=== PATIENT | female | born 1995 | race Caucasian/White ===

== ENCOUNTER → 2019-01-12 | Outpatient (REF) | payer OTHER ==
[~2019-01-12] MED LIST: IBUP80TA PO; PERCOCET PO
[2019-01-20 10:07] LABS: HPV HYBRID CAPTURE II Positive (Negative)
== END ==
LOC: M LAB LCGH 11:49
PROVIDERS: ATTEND Obstetrics & Gynecology
DX: R87.610 Atypical squamous cells of undetermined significance on cytologic smear of cervix (ASC-US) (principal)
CPT/HCPCS: 87624; G0123

== ENCOUNTER 2019-12-21 14:49 | Outpatient (CLI) | payer OTHER ==
[~2019-12-21] VITALS: Ht 165.1 cm; Wt 93.6 kg
[2019-12-21] MEDS ORDERED: INSUDET SC (15:29)
[2019-12-21] MEDS ORDERED: NOVOINJ SC (15:29)
[2019-12-21] MEDS ORDERED: LACTATED RINGER'S 1000 ML IV ONE (16:15)
[2019-12-21] MEDS ORDERED: LR 1,000 ML IV SCH (16:15)
[2019-12-21 16:43] LABS: HEMATOCRIT 31.8 % (36.0-47.0); HEMOGLOBIN 9.9 g/dl (12.0-15.5); MEAN CORPUSCULAR HEMOGLOBIN 23.6 pg (27.0-33.0); MEAN CORPUSCULAR HGB CONC 31.1 g/dl (32.0-36.5); MEAN CORPUSCULAR VOLUME 75.9 fl (80.0-96.0); PLATELET COUNT, AUTOMATED 144 10^3/uL (150-450); RED BLOOD COUNT 4.19 10^6/uL (4.00-5.40); WHITE BLOOD COUNT 9.3 10^3/uL (4.0-10.0)
[2019-12-21 17:26] LABS: ALBUMIN 2.6 GM/DL (3.2-5.2); ALT/SGPT 16 U/L (12-78); BILIRUBIN,TOTAL 0.6 MG/DL (0.2-1.0); BLOOD UREA NITROGEN 7 MG/DL (7-18); CALCIUM LEVEL 9.6 MG/DL (8.5-10.1); CARBON DIOXIDE LEVEL 22 MEQ/L (21-32); CHLORIDE LEVEL 107 MEQ/L (98-107); CREATININE FOR GFR 0.75 MG/DL (0.55-1.30); GLOMERULAR FILTRATION RATE > 60.0 (>60); GLUCOSE, FASTING 74 MG/DL (70-100); POTASSIUM SERUM 4.1 MEQ/L (3.5-5.1); SODIUM LEVEL 137 MEQ/L (136-145); TOTAL PROTEIN 5.8 GM/DL (6.4-8.2)
== END 2019-12-21 17:44 | disposition home or self-care (01) ==
LOC: M LDO 14:49
PROVIDERS: ATTEND Obstetrics & Gynecology
DX: O47.1 False labor at or after 37 completed weeks of gestation (principal); Z3A.37 37 weeks gestation of pregnancy
CPT/HCPCS: 59025; 80053; 85027; G0378; G0463

== ENCOUNTER 2019-12-24 01:35 | Inpatient (IN) | payer OTHER ==
[~2019-12-24] VITALS: Ht 165.1 cm; Wt 93.1 kg
[2019-12-24] VITALS (7 sets, daily range): BP systolic 111–137; BP diastolic 66–84
[~2019-12-24 01:35] MED LIST changes: +INSUDET SC; +NOVOINJ SC
[2019-12-24] MEDS ORDERED: INSUHUMDS SC (01:54)
[2019-12-24] MEDS ORDERED: LACTATED RINGER'S 1000 ML IV STA (02:07)
[2019-12-24] MEDS ORDERED: LR 1,000 ML IV SCH (02:07)
[2019-12-24] MEDS ORDERED: BICITRA 30ML SOLN UDC PO ONE (02:15)
[2019-12-24] MEDS ORDERED: MORPHINE PRES-FREE INJ 10 MG/10 ML VIAL (J2274) As Ordered ONE (02:36)
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
[2019-12-24 02:40] LABS: HEMATOCRIT 31.6 % (36.0-47.0); HEMOGLOBIN 9.8 g/dl (12.0-15.5); MEAN CORPUSCULAR HEMOGLOBIN 23.5 pg (27.0-33.0); MEAN CORPUSCULAR VOLUME 75.8 fl (80.0-96.0); PLATELET COUNT, AUTOMATED 149 10^3/uL (150-450); RED BLOOD COUNT 4.17 10^6/uL (4.00-5.40); WHITE BLOOD COUNT 11.7 10^3/uL (4.0-10.0)
[2019-12-24] MEDS ORDERED: OXYTOCIN INJ 10 UNITS/ML VIAL (J2590) As Ordered ONE ×2 (02:41→03:18)
[2019-12-24] MEDS: AZTREONAM 2 GM in D5W MINI-BAG PLUS 50 ML IV SCH ×2 (02:43→10:53)
[2019-12-24] MEDS ORDERED: OXYTOCIN DRIP 30 UNITS in IV 1 EA IV SCH (02:53)
[2019-12-24] MEDS: LR 1,000 ML IV SCH ×3 (02:53→17:45)
[2019-12-24] MEDS ORDERED: diphenhydrAMINE 50MG/ML VIAL (J1200) IV PRN ×2 (02:58→04:45)
[2019-12-24] MEDS ORDERED: ONDANSETRON 4MG/2ML VIAL IV PRN ×3 (02:58→04:45)
[2019-12-24] MEDS ORDERED: NALOXONE INJ 0.4MG/1ML VIAL (J2310 PER 1MG) IV PRN ×2 (02:58)
[2019-12-24] MEDS ORDERED: NALBUPHINE HCL 10 MG/ML AMP (J2300) IV PRN ×2 (02:58→04:45)
[2019-12-24] MEDS ORDERED: METOCLOPRAMIDE INJ 10MG/2ML VIAL (J2765 PER 1) IV PRN (02:58)
[2019-12-24] MEDS ORDERED: MEASLES,MUMPS,RUBELLA VACCINE INJ (MMR-II) (90707) SC SCH (03:00)
[2019-12-24] MEDS ORDERED: MOM 30ML SUSPENSION UDC PO PRN (03:00)
[2019-12-24] MEDS ORDERED: RHOGAM 300 MCG (1500 IU) INJ (J2790) IM SCH (03:00)
--- NOTE | 2019-12-24 03:02 | ROOPDOC ---
[facility] Report Of Operation Report of Operation DATE OF PROCEDURE: 12/24/19 SURGEON: Mera Bailey M.D. WASTEWATER PROJECT ENGINEER: Nataliya Bejarano CNM PROCEDURE: section with bilateral Filley tubal ligation PREOPERATIVE DIAGNOSIS: 1. History of prior section 2. Intrauterine at 38 weeks in labor 3. Satisfied parity with undesired fertility POSTOPERATIVE DIAGNOSIS: 1. History of prior section 2. Intrauterine at 38 weeks in labor 3. Satisfied parity with undesired fertility ANESTHESIA: Spinal ESTIMATED BLOOD LOSS: 500 mL URINE OUTPUT: 100 mL INTRAVENOUS FLUIDS: 2 L lactated Ringer solution PREOPERATIVE ANTIBIOTICS: 900 mg of clindamycin and 2 g of Azactam OPERATIVE FINDINGS: Liveborn female infant, Apgars 8 and 9. Weight was 5190 g 11 lbs. 7 oz. SPECIMENS: Bilateral segments of fallopian tubes DESCRIPTION OF PROCEDURE: After informed consent was obtained and written consent was reviewed. The patient was brought to the operating room where spinal anesthesia was placed. She was then placed in the supine position with a left lateral tilt. Anderson catheter was placed and to gravity. Patient was then prepped and draped in the normal sterile fashion. A timeout operating room was performed identifying the patient, procedure be performed as well as drug allergies. Anesthesia was tested and deemed to be adequate. Pfannenstiel skin incision was made and this was carried down to the underlying rectus fascia. The fascia was then scored and this incision was extended bilaterally. The fascia was then dissected off the underlying rectus muscle superiorly and inferiorly. The rectus muscles were then in the midline. The peritoneum is then entered. Vesicouterine peritoneum was then tented and excised and a bladder flap was created. Mobius retractor was then placed. Next, a curvilinear incision was then made in the lower uterine segment. The head was brought to the level of the incision atraumatically and delivered along the shoulders and corpus. The cord was clamped x2. The infant was brought over to the warmer with a good cry. Placenta was drained and delivered grossly intact. The uterus was cleared of all clots and debris and the uterine incision was then closed in 2 layers using 0 Vicryl, first in a running locking fashion followed by second layer for imbrication. The abdomen suctioned. Attention was then turned to a bilateral Filley tubal ligation. A window was created in the right mesosalpinx. This area was doubly ligated with 3-0 chromic and was excised with good hemostasis noted. In a similar fashion, the left fallopian tube was placed on traction. A window was created in the mesosalpinx. This area was doubly ligated with 3-0 chromic and was excised, and hemostasis was noted. Surgical sites reinspected and noted be hemostatic. The retractor was then removed. The anterior peritoneum was then reapproximated with 3-0 Vicryl. The rectus muscles were reapproximated 3-0 Vicryl. The fascia was then closed using 0 Vicryl in a running nonlocking fashion. The subcutaneous tissues was then irrigated and suctioned. Subcutaneous tissue was reapproximated using 3-0 Christofer ryl. Several subdermal stitch is placed using 3-0 Vicryl and the skin was closed with 4-0 Monocryl and subcuticular fashion. This incision was then cleaned and dried and was dressed. The patient was then taken to recovery in stable condition. All counts were correct. My surgical asst Nataliya Bejarano played in an essential role during the operation. She assisted with tissue identification retraction, delivery of the , as well as wound closure. MERA BAILEY MD. Dec 24, 2019 03:02
[2019-12-24] MEDS ORDERED: ONDANSETRON 4MG/2ML VIAL As Ordered ONE (03:14)
[2019-12-24] MEDS ORDERED: dexameTHASONE 4 MG/ML 1ML VIAL (J1100 PER 1MG) As Ordered ONE (03:18)
[2019-12-24] MEDS ORDERED: PHENYLephrine HCL 500 MCG/5 ML (100MCG/ML) SYRINGE (J2370) As Ordered ONE (03:31)
[2019-12-24] MEDS ORDERED: ePHEDrine SULFATE 25 MG/5 ML(5MG/ML) SYRINGE As Ordered ONE (03:31)
[2019-12-24] MEDS ORDERED: KETOROLAC 60MG 2ML VIAL As Ordered ONE (03:31)
[2019-12-24] MEDS ORDERED: OXYTOCIN 30 UNITS IN 0.9% NaCl 500ML IV BAG (J2590) As Ordered ONE (03:38)
[2019-12-24] MEDS: KETOROLAC 30 MG/ML 1ML VIAL IV SCH ×3 (04:00→16:07)
[2019-12-24] MEDS ORDERED: diphenhydrAMINE 50MG/ML VIAL (J1200) As Ordered ONE (04:40)
[2019-12-24] MEDS ORDERED: fentaNYL 100 MCG/2 ML INJECTION (J3010) IV PRN (04:45)
[2019-12-24] MEDS: DOCUSATE SODIUM 100 MG CAP PO SCH ×2 (09:00→20:35)
[2019-12-24] MEDS: PRENATAL VITAMINS CHEWABLE TABLET PO SCH (09:00)
[2019-12-24] MEDS ORDERED: LR 1,000 ML IV ONE ×2 (16:30→21:00)
[2019-12-24] MEDS: PERCOCET 5MG/325MG TAB PO PRN (23:03)
[2019-12-25] MEDS: IBUPROFEN 800 MG TAB PO SCH ×4 (00:22→23:52)
[2019-12-25 02:00] VITALS: BP 118/57
[2019-12-25] MEDS: PERCOCET 5MG/325MG TAB PO PRN ×3 (03:24→16:58)
[2019-12-25 06:00] VITALS: BP 119/57
--- NOTE | 2019-12-25 06:23 | IPNPDOC ---
Progress Note Date of Service: Dec 25, 2019 Day#: 1 Progress Note SUBJECT: Doing well without complaints. Ambulating, voiding and pain is well-c ontrolled. Reports minimal lochia. OBJECTIVE: VITAL SIGNS: Within normal limits, afebrile. Alert and oriented times three. Abdomen: Fundus firm at U-2. Soft, NTTP. Incision: dressed Ext: neg calf tenderness. ASSESSMENT: /postoperative day #1 status post delivery. Recovering in stable condition. PLAN: 1. Continue routine /postoperative care 2. Discharge plans for tomorrow VS, I&O, 24H, Fishbone Vital Signs/I&O Vital Signs Date Time Temp Pulse Resp B/P (MAP) Pulse Ox O2 Delivery O2 Flow Rate FiO2 12/25/19 04:30 18 Room Air 12/25/19 02:00 96.5 105 118/57 (77) 98 I&O- Last 24 Hours up to 6 AM 12/25/19 06:00 Intake Total 2740 ml Output Total 1500 ml Balance 1240 ml ELOISE HOLDEN MD. Dec 25, 2019 06:23
[2019-12-25 07:02] LABS: HEMATOCRIT 26.7 % (36.0-47.0); MEAN CORPUSCULAR VOLUME 76.7 fl (80.0-96.0); PLATELET COUNT, AUTOMATED 156 10^3/uL (150-450); RED BLOOD COUNT 3.48 10^6/uL (4.00-5.40); WHITE BLOOD COUNT 9.5 10^3/uL (4.0-10.0)
[2019-12-25] MEDS: DOCUSATE SODIUM 100 MG CAP PO SCH ×2 (08:51→20:57)
[2019-12-25] MEDS: PRENATAL VITAMINS CHEWABLE TABLET PO SCH (08:53)
[2019-12-25 18:00] VITALS: BP 113/66
[2019-12-25] MEDS ORDERED: PERCOCET 5MG/325MG TAB PO STA (18:01)
[2019-12-26] MEDS: PERCOCET 5MG/325MG TAB PO PRN ×2 (01:12→08:17)
--- NOTE | 2019-12-26 04:17 | DS.PDOC ---
Discharge Summary General Date of Admission Dec 24, 2019 at 02:08 Date of Discharge 12/27/2019 Attending Physician: ELOISE HOLDEN MD. Discharge Summary PROCEDURES PERFORMED DURING STAY: 1. Spinal anesthesia. 2. Repeat section. 3 bilateral Nesquehoning tubal ligation. ADMITTING DIAGNOSES: 1. Spontaneous rupture membranes. DISCHARGE DIAGNOSES: 1. Repeat section. COMPLICATIONS/CHIEF COMPLAINT: Labor Check/Rom. HISTORY OF PRESENT ILLNESS: 24-year-old 2, para 1 that presented at 38 weeks with spontaneous rupture membranes. Her history was significant for prior section. Her course has been remarkable for poorly controlled gestational diabetes. She had expressed desire for 6 weeks. Satisfied parity and undesired fertility and desired to proceed with elective repeat section. HOSPITAL COURSE: Uncomplicated. DISCHARGE MEDICATIONS: Please see below. ALLERGIES: Please see below. PHYSICAL EXAMINATION ON DISCHARGE: VITAL SIGNS: Please see below. GENERAL: Well-appearing, no acute distress ABDOMINAL EXAMINATION: Soft, appropriately tender. Fundus is firm below umbilicus. Incision was dressed. EXTREMITIES: Negative calf tenderness NEUROLOGICAL EXAMINATION: Grossly intact PSYCHIATRIC EXAMINATION:. Appropriate LABORATORY DATA: Please see below. ACTIVITY: As tolerated. DIET: Regular DISCHARGE PLAN: Home DISCHARGE INSTRUCTIONS: 1. Remain on pelvic rest for 6 weeks. 2. Reports severe pain, heavy vaginal bleeding, fever, incisional issues. 3. Follow-up in 2 weeks for incision check. ITEMS TO FOLLOWUP ON ON OUTPATIENT: 1. None. DISCHARGE CONDITION: Stable. Vital Signs/I&Os Vital Signs Date Time Temp Pulse Resp B/P (MAP) Pulse Ox O2 Delivery O2 Flow Rate FiO2 12/26/19 01:12 18 Room Air 12/25/19 18:00 97.4 76 113/66 (82) 100 Laboratory Data Labs 24H Laboratory Tests 2 12/25/19 06:25: Nucleated Red Blood Cells % (auto) 0.0 CBC/BMP Laboratory Tests 12/25/19 06:25 Discharge Medications Scheduled Insulin Detemir (Levemir) 100 Unit/1 Ml Vial, 32 UNITS SC QPM, (Reported) Insulin Human Lispro (Humalog) 100 Unit/1 Ml Vial, 14 UNITS SC AC, (Reported) Allergies Coded Allergies: Penicillins (Verified Allergy, Mild, rash, 12/21/19) ELOISE HOLDEN MD. Dec 26, 2019 04:17
[2019-12-26 05:55] VITALS: BP 114/58
[2019-12-26] MEDS ORDERED: IBUP80TA PO (08:02)
[2019-12-26] MEDS ORDERED: PERCOCET PO (08:02)
[2019-12-26] MEDS: PRENATAL VITAMINS CHEWABLE TABLET PO SCH (08:15)
[2019-12-26] MEDS: DOCUSATE SODIUM 100 MG CAP PO SCH (08:15)
[2019-12-26] MEDS: IBUPROFEN 800 MG TAB PO SCH (08:16)
== END 2019-12-26 10:45 | disposition home or self-care (01) | DRG 785 ==
LOC: M LDO 01:35 → M LDI 02:08 → M OBS 05:45
PROVIDERS: ADMIT Advanced Practice Midwife; ATTEND Advanced Practice Midwife
PROC: 0UB70ZZ Excision of Bilateral Fallopian Tubes, Open Approach (ICD-10-PCS; 2019-12-24)
PROC: 10D00Z1 Extraction of Products of Conception, Low, Open Approach (ICD-10-PCS; principal; 2019-12-24 02:30)
DX: O24.434 Gestational diabetes mellitus in the puerperium, insulin controlled (principal); Z37.0 Single live birth; Z3A.38 38 weeks gestation of pregnancy; O34.211 Maternal care for low transverse scar from previous cesarean delivery; Z88.0 Allergy status to penicillin; Z30.2 Encounter for sterilization